=== PATIENT | female | born 1955 | race Caucasian/White ===

== ENCOUNTER → 2016-12-27 07:50 | Outpatient (CLI) | payer BC | END | disposition home or self-care (01) | LOC: D.RT 07:50 | DX: J44.9 Chronic obstructive pulmonary disease, unspecified (principal) ==

== ENCOUNTER → 2017-04-07 08:46 | Outpatient (CLI) | payer BC | LOC: D.MAMMO 03-24 08:30 | DX: N64.4 Mastodynia (principal) ==

== ENCOUNTER → 2018-12-19 07:45 | Outpatient (CLI) | payer OTHER | END | disposition home or self-care (01) | LOC: D.RT 07:45 | PROVIDERS: ATTEND Family Medicine | DX: Z02.71 Encounter for disability determination (principal) ==

== ENCOUNTER 2020-11-19 16:30 | Outpatient (CLI) | payer MEDICAID | END 2020-11-19 23:59 | disposition home or self-care (01) | LOC: D.MAMMO 16:30 | PROVIDERS: ATTEND Family Medicine | DX: Z12.31 Encounter for screening mammogram for malignant neoplasm of breast (principal) ==

== ENCOUNTER 2020-12-07 15:03 | Emergency (ER) | payer MEDICAID ==
[~2020-12-07] VITALS: Ht 162.6 cm; Wt 54.5 kg
[2020-12-07 15:12] VITALS: Ht 162.6 cm; Wt 54.5 kg
[2020-12-07] MEDS ORDERED: HYDROCODON-ACE1 EAC7 PO ×2 (15:15→16:25)
[2020-12-07] MEDS ORDERED: BREO ELLIPTA 11 EACH INH ×2 (15:15→16:25)
[2020-12-07] MEDS ORDERED: NEURONTIN 300300 MG PO (15:16)
[2020-12-07] MEDS ORDERED: NEBULIZERS (15:16)
[2020-12-07 17:29] VITALS: BP 134/83
== END 2020-12-07 17:29 | disposition home or self-care (01) ==
LOC: D.ER 15:03
DX: J44.1 Chronic obstructive pulmonary disease with (acute) exacerbation (principal); M79.7 Fibromyalgia; R06.02 Shortness of breath; Z72.0 Tobacco use

== ENCOUNTER 2020-12-08 15:09 | Emergency (ER) | payer MEDICAID ==
[2020-12-07 15:12] VITALS: Ht 162.6 cm; Wt 54.5 kg
[~2020-12-08] VITALS: Ht 162.6 cm; Wt 54.5 kg
[~2020-12-08 15:09] MED LIST: BREO ELLIPTA 11 EACH INH; HYDROCODON-ACE1 EAC7 PO; NEBULIZERS; NEURONTIN 300300 MG PO
[2020-12-08 15:33] VITALS: BP 126/75
== END 2020-12-08 18:03 | disposition home or self-care (01) ==
LOC: D.ER 15:09
DX: Z76.5 Malingerer [conscious simulation] (principal); R06.02 Shortness of breath; G62.9 Polyneuropathy, unspecified; J44.9 Chronic obstructive pulmonary disease, unspecified